=== PATIENT | female | born 1965 | race Hispanic/Latino ===

== ENCOUNTER → 2017-04-04 | Day surgery (SDC) | payer OTHER ==
[~2017-04-04] VITALS: Ht 154.9 cm; Wt 64.0 kg
[~2017-04-04] MED LIST: 0.9% Sodium Chloride 1,000 ML IV SCH; ALBU8.5H4 IH; AMLO5TAB2 PO; BECL8.7A6 INHALATION; HYDR1TAB PO; LEVO125T6 PO; LEVOXYL150 MCG PO; OMEP20CA11 PO; PRE20 PO; Sodium Chloride LOK Flush 10 mL Syringe IV PRN; fentaNYL-PF 50 mCg/mL 2 mL Inj IVPUSH PRN
[2017-04-04 13:35] VITALS: BP 155/97; PULSE 78; RESP 14; O2SAT 96
[2017-04-04 14:24] VITALS: BP 111/75; PULSE 74; RESP 16; O2SAT 95
[2017-04-04 14:34] VITALS: BP 104/73; PULSE 70; RESP 16; O2SAT 94
[2017-04-04 14:49] VITALS: BP 102/69; PULSE 83; RESP 12; O2SAT 95
--- NOTE | 2017-04-04 14:57 | ENDO ---
[address] [address] ENDOSCOPY PROCEDURE PATIENT: EMILY MAHAJAN : 1965 MR#: [id number] ADMIT: 04/04/2017 JOB ID: [id number] DATE OF SERVICE: 04/04/2017 TYPE OF OPERATION: EGD, biopsy, colonoscopy. PREOPERATIVE DIAGNOSIS(ES): Early satiety and history of colon polyps. POSTOPERATIVE DIAGNOSIS(ES): 1. Normal upper endoscopy, status post biopsy. 2. Normal colonoscopy. ANESTHESIA: Fentanyl 100 mcg, Versed 5 mg IV administered. COMPLICATION: None. BLOOD LOSS: Minimal. DESCRIPTION OF PROCEDURE: After risks and benefits explained to the patient, informed consent was obtained. After anesthesia administered, upper endoscope was then inserted in mouth, intubating into the esophagus, stomach, second portion of duodenum. Mucosa carefully examined. After procedure was done, the scope was withdrawn, procedure terminated. Colonoscope was then inserted from the rectum to the cecum. Mucosa carefully examined. Prep of the patient was excellent. After procedure was done, the scope was withdrawn, procedure terminated. FINDINGS: Upon inspection of the esophagus, esophagus appeared normal without masses, ulcers, or lesions. Z-line located at 35 cm from the incisors. Upon entering the stomach, the stomach also appeared normal without masses, ulcers, or lesions. Retroflexion was normal. Duodenal bulb, first and second portion normal. Biopsy taken of duodenum, antrum, body of stomach. Upon inspection of the anus, no masses, hemorrhoids, ulcers, fissures that were seen throughout the entire examination. No polyps, masses, or lesions. Retroflexion normal. IMPRESSION: Normal colonoscopy and normal upper endoscopy, status post biopsy. RECOMMENDATIONS: Await pathology results. Repeat colonoscopy in five years given history of colon polyps.
--- NOTE | 2017-04-10 15:08 | PATH ---
SURGICAL PATHOLOGY Attending Physician:Austin Mathew MD CASE STATUS: Signed Out PATIENT NAME: EMILY MAHAJAN PID: [id number] : 1965 DATE COLLECTED:04/04/2017 00:00 SPECIMEN: 1: Duodenum, Biopsy 2: Stomach, Antrum, Biopsy 3: Gastric, Biopsy CLINICAL HISTORY: 1). DUODENUM BIOPSY 2). ANTRUM BIOPSY RULE OUT H [facility]YLORI 3). GASTRIC BODY BIOPSY RULE OUT H [facility]I FINAL DIAGNOSIS: 1. Duodenum, Biopsies: Duodenal mucosa with increased intraepithelial lymphocytes, see comment. Negative for villous blunting, Giardia organisms, dysplasia and malignancy. 2-3. Stomach, Antrum, Body, Biopsies: Helicobacter pylori gastritis. Negative for intestinal metaplasia. Negative for dysplasia and malignancy. ICD10: R10.9 B96.81 NOTE: 1. Intraepithelial lymphocytosis has been reported in association with Helicobacter pylori gastritis. The differential diagnosis also includes latent celiac sprue, other protein allergies, tropical sprue, and medication related changes (i.e. Olmesartan). GROSS DESCRIPTION: The specimen is received in three formalin filled containers labeled with the patient's name. 1). The specimen is labeled "duodenum" and consists of 2 portions of tissue which aggregate to 0.4 x 0.2 x 0.2 CM. The specimen is entirely submitted in cassette 1A. 2). The specimen is labeled "antrum" and consists of 2 portions of tissue which aggregate to 0.3 x 0.2 x 0.2 CM. The specimen is entirely submitted in cassette 2A. 3). The specimen is labeled "gastric body" and consists of 2 portions of tissue which aggregate to 0.3 x 0.2 x 0.2 CM. The specimen is entirely submitted in cassette 3A. 04/07/2017DC MICRO DESCRIPTION: Immunohistochemical stains for Helicobacter were performed on blocks 2 and 3, and are both positive. A control stains shows appropriate reactivity. *This test was developed and its performance characteristics determined by [facility]. It has not been cleared or approved by the U.S. Food and Drug Adminstration. The FDA has determined that such clearance or approval is not necessary. This test is used for clinical purposes. It should not be regarded as investigational or for research. ICD-9 CODES: CPT CODES: 1: 96342 2: 59215, 58435 3: 55639, 93962 Electronically Signed Out Sameera Conway MD [facility] [address], [place] [address] Technical component performed at [facility], [address], [place], [address]
== END | disposition home or self-care (01) ==
LOC: END 00:13
PROVIDERS: ATTEND Internal Medicine Gastroenterology
DX: Z12.11 Encounter for screening for malignant neoplasm of colon (principal); Z86.010 Personal history of colon polyps; B96.81 Helicobacter pylori [H. pylori] as the cause of diseases classified elsewhere; R68.81 Early satiety; R14.0 Abdominal distension (gaseous); K21.9 Gastro-esophageal reflux disease without esophagitis; R10.11 Right upper quadrant pain; I10 Essential (primary) hypertension; E03.9 Hypothyroidism, unspecified; J45.909 Unspecified asthma, uncomplicated
CPT/HCPCS: 43239; G0105; G0500; J2250; J3010; J7030